=== PATIENT | male | born 1980 | race Caucasian/White ===

== ENCOUNTER → 2016-10-03 | Outpatient (CLI) | payer BC ==
--- NOTE | 2016-10-06 22:55 | SLEEPHOME ---
DATE OF PROCEDURE: 10/03/2016 REFERRING PHYSICIAN: Yajaira Watts INTERPRETATION: Diagnostic home sleep testing was performed due to concern for the obstructive sleep apnea syndrome in this patient with a history of excessive somnolence and an [place] scale of 5. For testing, a NOX-T3 respiratory monitoring device was used. Continuous record was made of pulse, oxygen saturation, airflow, chest and abdominal strain, and body position. 10 hours and 59 minutes of data were reviewed. Of these, 7 hours and 2 minutes were marked as time in bed. During the interval marked time in bed, there were 113 respiratory events identified of 10 seconds in duration or greater for a respiratory event index of 16.1. The events were primarily obstructive. Baseline heart rate 53 beats per minute. Pulse rate ranged 40 to 103. Baseline saturation 93%. Lowest oxygen saturation 83%. Testing was performed in both the supine and nonsupine positions. IMPRESSION: Abnormal home sleep testing with repetitive respiratory events and oxygen desaturations to 83% with a respiratory event index of 16.1, is consistent with the obstructive sleep apnea syndrome. RECOMMENDATION: The patient should be encouraged to undergo formal sleep evaluation with in laboratory pressure titration.
== END ==
LOC: M SLEEP HO 14:17
PROVIDERS: ATTEND Nurse Practitioner Adult Health
DX: G47.30 Sleep apnea, unspecified (principal)

== ENCOUNTER → 2019-08-12 | Outpatient (CLI) | payer BC ==
--- NOTE | 2019-08-12 13:11 | REP ---
Left wrist four views : There is no fracture or dislocation. Mineralization and joint spaces are normal. There are no calcifications or foreign bodies. Impression: Negative left wrist . Electronically Signed by Altaf Fay MD 08/12/2019 01:03 P
--- NOTE | 2019-08-12 13:12 | REP ---
Left thumb four views : There is no fracture or dislocation. Mineralization and joint spaces are normal. There are no calcifications or foreign bodies. Impression: Negative left thumb. . Electronically Signed by Altaf Fay MD 08/12/2019 01:04 P
== END ==
LOC: M RAD 12:28
PROVIDERS: ATTEND Physician Assistant Medical
DX: R29.6 Repeated falls (principal)

== ENCOUNTER → 2021-08-30 | Outpatient (CLI) | payer BC | LOC: M WUC 12:04 | PROVIDERS: ATTEND Physician Assistant | DX: M79.641 Pain in right hand (principal) ==

== ENCOUNTER → 2024-02-21 | Outpatient (REF) | payer BC | LOC: M LABSMT 10:01 | PROVIDERS: ATTEND Urology | DX: Z30.2 Encounter for sterilization (principal) ==

== ENCOUNTER → 2024-05-03 | Outpatient (REF) | payer BC ==
[2024-05-03 11:19] LABS: SEMEN APPEARANCE OPAQUE (OPAQUE); SEMEN VISCOSITY LIQUID (LIQUID); SEMEN VOLUME 1.9 ml (2.0-5.0); WBC CONCENTRATION <=1 M/ml (<=1 M/ml)
== END ==
LOC: M SMT 11:00
PROVIDERS: ATTEND Urology
DX: Z30.2 Encounter for sterilization (principal)